=== PATIENT | female | born 1930 | race Caucasian/White ===

== ENCOUNTER 2017-04-30 13:30 | Inpatient (IN) | payer MEDICARE, BC ==
[~2017-04-30] VITALS: Ht 160 cm; Wt 64.8 kg
--- NOTE | ~2017-04-30 | DS ---
PATIENT'S NAME: MEENAKSHI DUNN [facility] AGE: 87 Y [address] ROOM: [address] [address] [facility] AD[facility] DATE: 04/30/2017 Discharge Summary DISCHARGE DATE: FAMILY PHYSICIAN: Sara Crocker MD ATTENDING PHYSICIAN: Jqauan Ferraro PRINCIPAL DIAGNOSES: 1. Wide-complex tachycardia. 2. Atrial fibrillation with rapid ventricular rate. 3. Coronary artery disease, status post stenting with bare metal stent to the left circumflex. 4. Bradycardia. 5. Hypertension. BRIEF HOSPITAL COURSE: This is an 87-year-old female, with known history of paroxysmal atrial fibrillation and coronary artery disease who presents with complaints of palpitations and on further workup was initially noted to be in AFib RVR and subsequently followed by wide complex tachycardia. The patient was initially started on amiodarone bolus and IV infusion, however, was subsequently bradycardic and in sinus rhythm right away and this had been held. The patient was seen by Cardiology, Dr. Franco and had a cardiac cath done to further evaluate them and was noted to have 99% stenosis of her left circumflex and a bare metal stent was placed. The patient is on dual- antiplatelet therapy at this point. The patient had been in sinus rhythm with heart rates in the 50s and asymptomatic throughout her hospital stay following that. The patient is to be continued on low-dose metoprolol as well as p.o. amiodarone and she will follow up with Dr. Franco next week. PHYSICAL EXAMINATION: GENERAL: The patient is awake, alert, and oriented x3, in no acute distress. CHEST: Clear to auscultation bilaterally. HEART: S1, S2. Regular rate and rhythm. ABDOMEN: Soft, nontender, nondistended. EXTREMITIES: Without edema. NEUROLOGIC: Nonfocal. DISPOSITION: Home, to follow up with Dr. Franco next week. MEDICATIONS: Per MAR. Less than 30 minutes were spent in discharge planning and facilitating. PAT[facility] AGE: 87 Y [address] ROOM: [id number] [place] [id number] [facility] AD[facility] DATE: 04/30/2017 Discharge Summary DISCHARGE DATE: FAMILY PHYSICIAN: Sara Crocker MD ATTENDING PHYSICIAN: Jaquan Ferraro MD BG/modl /[id number] d: 05/04/17 1240 t: 05/04/17 1534, DISCHARGE SUMMARY
--- NOTE | ~2017-04-30 | HP ---
PATIENT'S NAME: MEENAKSHI DUNN [facility] AGE: 87 Y [address] ROOM: [place] [address] LOCATION: [facility] ADMIT DATE: 04/30/2017 History & Physical DISCHARGE DATE: FAMILY PHYSICIAN: Sara Crocker MD ATTENDING PHYSICIAN: Jaquan Ferraro DATE OF SERVICE: CHIEF COMPLAINT: Atrial fibrillation with rapid ventricular response. HISTORY OF PRESENTING ILLNESS: This 87-year-old white female with previous history of coronary artery disease status post coronary artery bypass grafting and paroxysmal atrial fibrillation, was transferred to [facility] from [place] after an episode of extreme tachycardia, which occurred this morning while she was at home. She had recently undergone DC cardioversion for atrial fibrillation, under the direction of Dr. Franco. Briefly, she was at home when she began to feel unwell. She states she stopped and took her pulse and noticed that it was racing. She contacted her son and she was subsequently taken to the emergency room in [place], where she was found to have ventricular rates in the 160s. An EKG demonstrated wide-complex tachycardia. She did receive some beta-ronnie therapy and her heart rates resolved, although she did become profoundly bradycardic. Dr. Franco, physician intensivist, was consulted by telephone, and recommended starting IV amiodarone. The drip was begun, but then subsequently stopped by the time she arrived to the floor here in [place]. Her heart rates are currently in the 50s. She denies fever, chills, or sweats. She denies headaches or dizziness. She did feel a little lightheaded when the episode came on this morning but feels fine now. She has not had any chest pain. She denies congestion or cough. No significant shortness of breath. No abdominal pain. She has been eating and drinking normally. Denies any difficulty with chewing or swallowing. No orthopnea. She has been stooling and voiding normally. No numbness, tingling, or weakness in her extremities or any associated physical or constitutional complaints. PAST MEDICAL HISTORY: ALLERGIES: NO KNOWN DRUG ALLERGIES. ILLNESSES: PATIENT'S NAME: MEENAKSHI DUNN [facility] AGE: 87 Y [address] ROOM: [place] [address] LOCATION: [facility] ADMIT DATE: 04/30/2017 History & Physical DISCHARGE DATE: FAMILY PHYSICIAN: Sara Crocker MD ATTENDING PHYSICIAN: Jaquan Ferraro 1. Coronary artery disease status post coronary artery bypass grafting in 2007. 2. Paroxysmal atrial fibrillation. 3. Essential hypertension. 4. Hyperlipidemia. 5. Osteoarthritis, generalized. 6. Hypothyroidism. CURRENT MEDICATIONS: 1. Acetaminophen 500 mg p.o. daily p.r.n. 2. Aspirin 81 mg p.o. daily. 3. Isosorbide dinitrate 30 mg p.o. at bedtime. 4. Levothyroxine 25 mcg p.o. daily. 5. Propafenone 225 mg p.o. b.i.d. 6. Simvastatin 40 mg p.o. at bedtime. 7. PreserVision daily. 8. Coumadin daily. FAMILY HISTORY: Significant for coronary artery disease in her brother, who at a young age. SOCIAL HISTORY: She is and lives near [place]. She is a nonsmoker and there is no significant history of alcohol use. REVIEW OF SYSTEMS: As per HPI. All other organ systems reviewed and are negative. OBJECTIVE: VITAL SIGNS: Temperature 97.1, pulse 54, respirations 18, blood pressure 184/81, O2 saturation 96% on room air. GENERAL: She is frail, but not ill-appearing, very hard of hearing, in no acute distress. SKIN: Supple, pink, warm, dry. No obvious rashes. HEENT: Otherwise normocephalic. Sclerae nonicteric. Pupils equal, round, and reactive to light and accommodation. Extraocular movements appear intact. Nasal turbinates normal in appearance. Oropharynx clear. Mucous membranes are pink and moist. NECK: Supple. No masses or adenopathy. No thyromegaly. No JVD in the 30- degree position. CHEST: Chest wall is symmetrical. HEART: Bradycardic but regular with a grade 1 to 2/6 systolic ejection murmur. LUNGS: Diminished at the bases. No crackles or wheezes are heard. PATIENT'S NAME: MEENAKSHI DUNN [facility] AGE: 87 Y [address] ROOM: [place] [address] LOCATION: [facility] ADMIT DATE: 04/30/2017 History & Physical DISCHARGE DATE: FAMILY PHYSICIAN: Sara Crocker MD ATTENDING PHYSICIAN: Jaquan Ferraro ABDOMEN: Soft, protuberant, nontender. Bowel sounds present. No mass or hepatosplenomegaly. and RECTAL: Not done. EXTREMITIES: Display no clubbing, cyanosis, or edema. NEUROLOGIC: Very hard of hearing. Otherwise no focal deficits. LABORATORY AND X-RAY DATA: CBC showed a white blood cell count 8.59, hemoglobin is 12.8, hematocrit 40, platelets 264. Chemistries revealed BUN and creatinine of 15 and 0.9 respectively. Sodium and potassium 138 and 4.0, chloride and CO2 are 102 and 26.7. AST and ALT 26 and 27 respectively. Bilirubin was 0.4, glucose 111. Cardiac enzymes showed a CPK 150, MB 2.0, troponin I of 0.03. Magnesium level was 1.8. TSH was normal at 2.04. INR was subtherapeutic at 1.54. ASSESSMENT AND PLAN: 1. Atrial fibrillation with rapid ventricular response, rate controlled, stable now. She is a little bradycardic, but appears to be sinus rhythm. We will continue to monitor on telemetry. The amiodarone had been discontinued when she got to the floor and we will hold restarting that for now. We will consult with Cardiology and await their recommendations. We will initiate full dose Lovenox and resume the warfarin. We will bridge therapy until she is therapeutic. 2. Near syncope. She appears to be hemodynamically stable now. We will monitor. 3. Essential hypertension, adequately controlled. We will plan to continue with her home regimen. 4. Coronary artery disease, clinically asymptomatic and stable. Continue with aspirin therapy and statin therapy. We will hold off on beta- ronnie therapy, she does not appear to tolerate it. We will trend cardiac enzymes. 5. Hypothyroidism, clinically stable on replacement therapy. 6. Deep venous thrombosis prophylaxis. She is going to be fully anticoagulated with Lovenox. MD CATARINA GAMBOA/uyen /[id number] D: [id number] T: [id number] HISTORY & PHYSICAL
--- NOTE | ~2017-04-30 | CATH ---
Cardiac Diagnostic + PCI Report Demographics Patient Name MONA RICHARDSON Gender Female Date of 1930 Age 87 year(s) Patient Number [id number] Date of Study 05/03/2017 Visit Number [id number] Room Number [id number] Corporate ID Ht 160.02 cm Wt 68.49 kg Referring Joan Quintanilla MD Primary Physician Physician Performing Joan Quintanilla MD Secondary Physician Physician Diagnostic Joan Quintanilla MD Assisting Physician Physician Interventional Joan Quintanilla MD Physician Truck Farmer Physician Findings and Conclusions Diagnostic Findings and Conclusion 3 vessel CAD 0/3 grafts patent Diagnostic Recommendations PCI LCFX Interventional Findings and Conclusion 0.014 prowater 2.5 x20 Emerge 2.5 x 24 Rebel to 2.7 with 0% residual Interventional Recommendations DAPT x 1 month Procedure Description The patient was brought to the diagnostic cardiac catheterization-EP laboratory in the fasting, non-sedated state. Informed consent was obtained in the written and verbal form after the risks and benefits were explained. The patient had no further questions and agreed to proceed. The planned puncture-incision site(s) were shaved and prepped with ChloraPrep and draped in the usual sterile manner. Conscious sedation, supplemental oxygen, and pain control medications were delivered by a registered nurse under physician guidance. Surface ECG rhythm, blood pressure measurement, and pulse oximetry were monitored throughout the procedure. Arterial access. The access site was infiltrated with lidocaine. The vessel was entered with the Seldinger technique. A sheath was advanced into the vessel and used for catheter placement. Selective left coronary angiography. A catheter was advanced into the left coronary vessel ostium under Fluoroscopic guidance. Contrast was injected by hand. Images were obtained in multiple projections. Selective right coronary angiography. A catheter was advanced into the right coronary vessel ostium under fluoroscopic guidance. Contrast was injected by hand. Images were obtained in multiple projections. Selective DUNN graft angiography. A catheter was advanced into the left internal mammary graft ostium under fluoroscopic guidance. Contrast was injected by hand. Images were obtained in multiple projections. Selective SVG angiography. A catheter was advanced into the graft proximal anastomosis under fluoroscopic guidance. Contrast was injected by hand. Images were obtained in multiple projections. Left heart catheterization. A catheter was advanced across the aortic valve to the left ventricle under fluoroscopic guidance. Resting hemodynamics were obtained. Stent Placement: A guiding catheter was used to intubate the vessel. A 0.14 wire was used to cross the lesion. A Bare Metal Stent was placed. Post placement angiograms were performed. Arterial artery hemostasis. Hemostasis was achieved. The patient was transferred to a regular nursing floor via cart accompanied by a nurse. The patient left the laboratory in stable condition. Diagnostic Cath Status: Urgent Interventional Cath Status: Urgent Procedure Procedure Type PCI procedure:Bare Metal Coronary Stent:, OM Indications: Angina. The procedure was explained in detail to the patient. Risks, complications and alternative treatments were reviewed. Written consent was obtained. Medications Reviewed with Patient prior to Procedure. Angiographic Findings Dominance: Right Cardiac Arteries and Lesion Findings LMCA: Normal (0% Stenosis).large wnl LAD: Abnormal.medium mid, 60-70%, no retrograde flow Diag 1 small ok Lesion on Mid LAD: Mid subsection.70% stenosis . LCx: Abnormal.lARGE WNL OM 1 medium ok OM3 large ostial 99% Lesion on 3rd Ob [place]: Ostial.99% stenosis 24 mm length reduced to 0%. Pre procedure JAY II flow was noted. Post Procedure JAY III flow was present. The guidewire cross was successful.A poor run off was present.The lesion was diagnosed as a moderate risk lesion.Culprit lesion. Devices used - Prowater Wire .014 x 180. Number of passes: 1. - Emerge Balloon 2.5 x 20. 1 inflation(s) to a max pressure of: 6 morgan. - 2.5 x 24 Rebel Stent. 2 inflation(s) to a max pressure of: 13 morgan. RCA: Abnormal.100% occluded Lesion on Prox RCA: Proximal subsection.100% stenosis . Cardiac Grafts - There is a Vein graft that originates at the Aorta Right and attaches to the Dist RCA (100% occluded). - There is a Vein graft that originates at the Aorta Left and attaches to the Mid CX (100% occluded). - There is a DUNN graft that originates at the DUNN and attaches to the Mid LAD (100% occluded). Coronary Tree Procedure Data Procedure Date Date: 05/03/2017Start: 09:40 AMEnd: 10:30 AM Entry Locations - Retrograde Percutaneous access was performed through the Right Femoral artery (Primary location). A 6 Fr sheath was inserted. Closure Comments: sheath sutured in to be pulled late on nursing floor. Procedure Medications Order and Administration + + + + + !Time !Medication !Dosage !Route ! + + + + + !05/03/2017 09:34 !Fentanyl !25 mcg !I.V. ! !AM ! ! ! ! + + + + + !05/03/2017 09:34 !Versed !1 mg !I.V. ! !AM ! ! ! ! + + + + + !05/03/2017 09:58 !Angiomax (Bivalirudin) !52.5 mg !I.V. bolus ! !AM !(ACC_5) ! ! ! + + + + + !05/03/2017 10:02 !Angiomax (Bivalirudin) !1.75 mg/kg/hr!I.V. drip ! !AM !(ACC_5) ! ! ! + + + + + !05/03/2017 10:08 !Niprodrigoe !55 mcg !I.C. ! !AM ! ! ! ! + + + + + !05/03/2017 10:11 !Nipride !61 mcg !I.C. ! !AM ! ! ! ! + + + + + !05/03/2017 10:12 !Brilinta (Ticagrelor) !180 mg !P.O. ! !AM !(ACC_20) ! ! ! + + + + + !05/03/2017 10:15 !Angiomax (Bivalirudin) ! !I.V. drip ! !AM !(ACC_5) ! ! ! + + + + + Devices Used - A6 Fr. BS JL 4 Diag. Catheterwas used for:Left coronary angiography. - A6 Fr. BS JR 4 Diag. Catheterwas used for:Right coronary angiography. - A6 Fr. BS IMT Diag. Catheterwas used for:DUNN. - A6 Fr. BS Angled Pigtail Diag. Catheterwas used for:LV Pressures. - A6 Fr. XB 3.5 Guide Catheterwas used for:OM Intervention. Contrast Material - Isovue [id number] ml Fluoroscopy Time: Diagnostic: 12:48 minutes. Total: 12:48 minutes. Fluoroscopy Dose: Diagnostic: 1156 mGy. Total: 1156 mGy. Estimated Blood Loss: 5 ml. Additional [facility] PCI Information PCI Indication:PCI for high risk Non-STEMI or unstable angina. Medical History Allergies - No known allergies. Risk Factors The patient risk factors include: prior CABG on 10/04/2007;physical activity, hypercholesterolemia, hypertension, family history of premature CAD, last creatinine: 0.7 mg/dl, creatinine clearance: 61.22 ml/min, dyslipidemia and prior AR . Admission Data Admission Date: 04/30/2017 Admission Time: 03:09 PM Admit Source: Other Insurance Payors: Medicare. Admission Medications + +------+------+ + + + + !Medication !Dosage!Times !Last !Last !Administered !Comments ! ! ! !Per !Delivery !Delivery ! ! ! ! ! !Day !Date !Time ! ! ! + +------+------+ + + + + !ARB (any) ! ! ! ! ! ! ! + +------+------+ + + + + !Aspirin ! ! ! ! ! ! ! !(any) ! ! ! ! ! ! ! + +------+------+ + + + + !Beta Swathi! ! ! ! ! ! ! !(any) ! ! ! ! ! ! ! + +------+------+ + + + + !Nitrates (iv! ! ! ! ! ! ! !or buccal) ! ! ! ! ! ! ! + +------+------+ + + + + !Statin (any)! ! ! ! ! ! ! + +------+------+ + + + + Clinical Evaluation Leading to Procedure - The patient's CAD presentation was assessed as: Non-STEMI. - The patient's anginal syndrome during the past two weeks was assessed as: Class IV according to the [place] Cardiovascular Society Classification System (CCS). Anti-anginal medications were prescribed during the past two weeks. The medications are: Beta Blockers, Long Acting Nitrates and Other. Hemodynamics Condition: Rest O2 Consumption: Estimated: 142.42Heart Rate: 55 bpm Pressures (mmHg) +-----+ + !Site !Pressure ! +-----+ + !AO !133/73 (92) ! +-----+ + !AO !187/68 (109) ! +-----+ + !AO !174/72 (110) ! +-----+ + !LV !178/-10 ,15 ! +-----+ + !LV !182/- ,14 ! +-----+ + !AO !188/65 (108) ! +-----+ + !LV !186/-14 ! +-----+ + Valve Gradients and Areas + +---------+---------+---------+ +---------+ + !Valve !Peak !Mean !Area !Index !Flow !Source ! + +---------+---------+---------+ +---------+ + !Aortic !0 !0 ! ! ! ! ! + +---------+---------+---------+ +---------+ + !Aortic !0 !0 ! ! ! ! ! + +---------+---------+---------+ +---------+ + Shunts Oxygen Values O2 Capacity 182.24 O2 Consumption 142.42 Signatures dtt: Dwight Franco (cardio) dtd: 05/03/17 0940 Physician Self Edit
--- NOTE | ~2017-04-30 | ESTC ---
Cardiac Perfusion Imaging Demographics Patient Name MONA RICHARDSON Gender Female Patient Number [id number] Race Visit Number [id number] Ethnicity Corporate ID Room Number [id number] Accession Number [id number] Height 63 inches Date of 1930 Weight 151 pounds Interpreting Kulwant Corley Date of study 05/01/2017 Physician Supervising /CLARENCE Corley NM Technologist Ildefonso Segundo Ordering Physician Danny Cain Stress Nabele DUNHAM cook chill technician Omar Stress ECG Reading Kulwant Corley Nurse Nabeel Physician Omar The procedure was explained in detail to the patient. Risks, complications and alternative treatments were reviewed. Written consent was obtained. Medications Reviewed with Patient prior to Procedure. Procedure Admit Source:Other. Procedure Type: Nuclear Stress Test:Pharmacological, Lexiscan, Cardiolite Stress Test Procedure Start time: 05/01/2017 08:45 Indications: Arrhythmia. Risk Factors The patient risk factors include:prior CABG on 10/04/2007;physical activity, hypercholesterolemia, hypertension, family history of premature CAD, last creatinine: 0.7 mg/dl, dyslipidemia, prior MN and creatinine clearance: 61.22 ml/min. Conclusions Summary 1. Perfusion Images: The overall quality of the study is good. Left ventricular cavity size is normal on stress and rest images. There is no evidence of abnormal lung activity. The right ventricle is not visualized and cannot be assessed. Stress imaging reveals a medium sized area of severe decreased isotope uptake in the lateral wall of the left ventricle. Rest imaging reveals a small sized area of moderate decreased isotope uptake in the lateral wall of the left ventricle. Gated imaging reveals normal wall motion. Impression ECG portion of the stress test is clinically negative for ischemia by diagnostic criteria. Pt has severe hypertension. Myocardial perfusion imaging is moderately abnormal. Images reveal a medium sized area of moderate to severe partially reversible perfusion defect in the lateral wall suggestive of infarct with moderate ischemia. Gated wall motion is normal with LVEF 56%. This is a intermediate risk stress test. Patient was notified of the findings. Stress Protocols Resting ECG Sinus Bradycardia, non specific T wave abnormality Pre-stress physical exam: Patient assessed by Dr Main prior to testing. Predicted HR: 133 bpm ECG Findings No ECG changes suggestive of ischemia. Arrhythmias No rhythm abnormality. Symptoms No symptoms with Lexiscan infusion. Stress Interpretation ECG portion of stress test is negative for ischemia by diagnostic criteria. Pt has severe hypertension. Nuclear images are pending Imaging Results Summed scores - Summed stress score: 18 - Summed rest score: 20 - Summed difference score: -2 Stress ejection Ejection fraction:57 % EDV :83 ml ESV :36 ml Stroke volume :47 ml LV mass :105 gr Imaging Protocols Rest Stress Isotope:Tc99m Sestamibi IV Isotope: Tc99m Sestamibi IV Isotope dose:10.1 mCi Isotope dose:30.4 mCi Date:05/01/2017 07:50 Date:05/01/2017 09:12 Technique: SPECT Technique: Gated Supine SPECT Supine IV remains in place after procedure. Scan Time:30 minutes post injection Scan Time:45-60 minutes post injection Procedure Medications - Regadenoson (Lexiscan) 0.4 mg IV over 10-15 sec. I.V. 0.4 mg. Medications administered per verbal order and read back to physician prior to administration. Medical History Admission Medications + +------+ + +---------+--------+ !Name !Dosage!Times per day!Start date!Stop date!Details ! + +------+ + +---------+--------+ !ARB (any) ! ! ! ! ! ! + +------+ + +---------+--------+ !Aspirin (any) ! ! ! ! ! ! + +------+ + +---------+--------+ !Beta Swathi (any) ! ! ! ! ! ! + +------+ + +---------+--------+ !Nitrates (iv or buccal)! ! ! ! ! ! + +------+ + +---------+--------+ !Statin (any) ! ! ! ! ! ! + +------+ + +---------+--------+ Admission Data Admission date: 04/30/2017 Admission Time: 15:09 Hospital Status: Inpatient. Signatures dtt: REYNALDO MAIN dtd: 05/01/17 0845 Physician Self Edit
--- NOTE | ~2017-04-30 | ECHO ---
Transthoracic Echocardiography Report (TTE) Demographics Patient Name MEENAKSHI DUNN Date of Study 05/01/2017 Patient Number [id number] Visit Number [id number] Date of 1930 Room Number G6335 Gender Female Number Age 87 year(s) Referring Danny Cain Tube Former Operator Darlene Moreno, Physician RT,RVT,RDCS Physician Interpreting Kulwant Corley Feller Operator Physician Supervising Ordering Danny Cain MD, MD/MLP Physician Nurse Stress Sales Forecast Analyst Conclusions Contractility Score Summary Normal Left Ventricular contractility was noted. Summary The estimated left ventricular ejection fraction is 60-65%. The left atrium is moderately dilated. Mild concentric left ventricular hypertrophy. Mild mitral regurgitation by color Doppler. Mild tricuspid regurgitation by color Doppler. Procedure Type of Study TTE procedure:2D Echocardiogram, M-Mode, Doppler , Color Doppler. Procedure Date Date: 05/01/2017 Start: 10:31 AM Study Location: Inpatient Portable Technical Quality: Good visualization Indications:Chest pain. Appropriate Use Criteria: 9 Patient Status: Routine HR: 54 bpm BP: 188/78 mmHg M-Mode/2D Measurements LV Diastolic Dimension: 5.22 cm LV Systolic Dimension: 3.83 cm LV Septum Diastolic: 1.09 cm LV Septum Systolic: 1.57 cm LV PW Diastolic: 1.19 cm LV PW Systolic: 1.25 cm Cardiac Output: 2.64 l/min AO Root Dimension: 2.6 cm RV Diastolic Dimension: 3.18 cm LA Dimension: 4.8 cm EF Estimated: 55 % LA volume: 51 ml LVOT: 1.8 cm LVOT VTI: 19.2 cm LV Stroke volume: 48.83 ml Doppler Measurements AV Peak Velocity: 1.01 m/s MV Peak E-Wave: 0.96 m/s AV Peak Gradient: 4.08 mmHg MV Peak A-Wave: 0.42 m/s AV Mean Gradient: 2 mmHg MV E/A Ratio: 2.29 LVOT Peak Velocity: 0.71 m/s MV P1/2t: 54 msec TR Gradient:27.25 mmHg PV Peak Velocity: 0.86 m/s Estimated RAP:10 mmHg PV Peak Gradient: 2.94 mmHg Estimated RVSP: 37 mmHg Estimated PASP: 37.25 mmHg E' Septal Velocity: 0.04 m/s A' Septal Velocity: 0.04 m/s MV E/E' Ratio: 23.2 Findings Left Ventricle Mild concentric left ventricular hypertrophy. Diastolic function indeterminate as tissue dopplers were not obtained. Right Ventricle Normal right ventricle structure and function. Left Atrium The left atrium is moderately dilated. Right Atrium Normal right atrial size. Poor subcostal window for IVC measurement. Mitral Valve Mild mitral regurgitation by color Doppler. Aortic Valve The aortic valve is moderately sclerotic. Tricuspid Valve The estimated pulmonary pressure (RVSP) is 30 mmHg. Mild tricuspid regurgitation by color Doppler. Pulmonic Valve Mild pulmonic valve regurgitation by color Doppler. Miscellaneous Visualized portions of the aortic root and ascending aorta appear normal in size. Pleural Effusion No evidence of pleural effusion. Contractility Score LV regional wall motion:(0-Non visualized 1-Normal 2-Hypokinesis 3-Akinesis 4-Dyskinesis 5-Aneurysm) Signature dtt: REYNALDO MAIN dtd: 05/01/17 1031 Physician Self Edit
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
[2017-04-30] MEDS ORDERED: PROPAFENONE HC225 MG PO (15:36)
[2017-04-30] MEDS ORDERED: COUMADIN ** IA3 MG PO (15:37)
[2017-04-30] MEDS ORDERED: COUMADIN ** IA3 MG (15:37)
[2017-04-30] MEDS ORDERED: ZOCOR40 MG PO (15:38)
[2017-04-30] MEDS ORDERED: TYLOPHEN500 MG PO (15:38)
[2017-04-30] MEDS ORDERED: NIFEREX-150) (150 MG PO (15:39)
[2017-04-30] MEDS ORDERED: LEVOTHROID (SY25 MCG PO (15:39)
[2017-04-30] MEDS ORDERED: IMDUR30 MG PO (15:39)
[2017-04-30] MEDS ORDERED: PRESERVISION A1 EAC1 PO (15:40)
[2017-04-30] MEDS ORDERED: BAYER CHILD81 MG PO (15:40)
[2017-04-30] MEDS ORDERED: XALATAN2.5 ML OPHTH (16:30)
--- NOTE | 2017-04-30 16:36 | NUR ---
Patient is 87 yo female admitted this afternoon for she says her heart was beating fast this morning. pt states she could tell something wasn't right and told her it was time to go to the hospital. patient lives in [place] w/her . patient is very hard of hearing and is very pleasant. saline lock is noted in left antecubital space without erythema or edema noted at site. patient is on monitor w/bradycardia noted. education is given as documented, patient denies questions. pneumatics are on bilat calves. pt edmundo well. call light is within reach, patient denies needs at this time. report is given to JOSEPHINE Pacheco.
--- NOTE | 2017-05-01 04:31 | NUR ---
Significant Event: Pt A&Ox3. VS stable, remains on RA. Has been hypertensive all shift, but better than start of shift. Pt is VERY [place]. Currently NPO for ECHO and Lexiscan today. No c/o chest pain. Does c/o dizziness when gets up. Up x1 assist with gaitbelt. HR's have been in the 40's-60's. PIV in LAC, SL. Follow up: Lexiscan, ECHO, possible home today if ok.
[2017-05-01 04:36] LABS: BASOPHIL # 0.1 K/uL (0.0-0.2); BASOPHIL % 0.7 %; EOSINOPHIL # 0.1 K/uL (0.0-0.5); EOSINOPHIL % 1.6 %; HEMOGLOBIN 12.4 g/dL (10.0-15.0); IMMATURE GRANULOCYTE % 0.3 %; LYMPHOCYTE # 1.1 K/uL (0.8-4.0); LYMPHOCYTE % 16.4 %; MCHC 32.6 gm/dL (32.0-36.5); MCV 91.8 fl (83.0-98.0); MONOCYTE # 0.6 K/uL (0.0-1.0); MONOCYTE % 9.1 %; MPV 9.7 fl (9.4-12.4); NEUTROPHIL # (ANC) 4.9 K/uL (1.8-7.8); NEUTROPHIL % 71.9 %; NRBC % 0 /100WBC (0-0.00); PLATELET COUNT 232 K/uL (150-450); RBC 4.14 M/uL (3.00-5.00); RDW-CV 13.6 % (11.9-14.6); WBC 6.8 K/uL (4.0-11.0)
[2017-05-01 04:42] LABS: INR - (THERAPEUTIC) 1.61 (0.92-1.07)
[2017-05-01 04:57] LABS: ALBUMIN 3.2 gm/dL (3.5-5.0); ANION GAP 9.6 (10.0-19.0); CALCIUM 8.2 mg/dL (8.5-10.5); CREATININE 0.8 mg/dL (0.5-1.1); MAGNESIUM 2.1 mg/dL (1.8-2.6); PHOSPHORUS 2.7 mg/dL (2.5-4.9); POTASSIUM 3.6 mMol/L (3.7-5.1)
--- NOTE | 2017-05-01 19:02 | NUR ---
PATIENT HAD STRESS TEST TODAY, DR REPORTED STRESS WAS ABNORMAL. SBP IN STRESS LAB WAS 200'S. PO NORVASC AND IV HYDRALAZINE GIVEN FOR SBP 180'S. BP DECREASED TO 140'S AFTER. HOLDING COUMADIN, GAVE LOVENOX. PLAN FOR HEART CATH ON WEDNESDAY.
[2017-05-02 05:16] LABS: BASOPHIL % 0.4 %; EOSINOPHIL # 0.2 K/uL (0.0-0.5); HEMATOCRIT 39.7 % (30.0-46.0); HEMOGLOBIN 13.4 g/dL (10.0-15.0); IMMATURE GRANULOCYTE % 0.4 %; LYMPHOCYTE # 1.2 K/uL (0.8-4.0); LYMPHOCYTE % 14.6 %; MCH 31.1 pg (27.0-34.0); MCHC 33.8 gm/dL (32.0-36.5); MCV 92.1 fl (83.0-98.0); MONOCYTE # 0.9 K/uL (0.0-1.0); MONOCYTE % 10.6 %; NEUTROPHIL # (ANC) 5.9 K/uL (1.8-7.8); NRBC % 0 /100WBC (0-0.00); PLATELET COUNT 248 K/uL (150-450); RBC 4.31 M/uL (3.00-5.00); RDW-CV 13.8 % (11.9-14.6); WBC 8.1 K/uL (4.0-11.0)
[2017-05-02 05:23] LABS: INR - (THERAPEUTIC) 1.41 (0.92-1.07); PROTIME 14.9 SECONDS (9.8-11.4)
[2017-05-02 05:36] LABS: ALBUMIN 3.2 gm/dL (3.5-5.0); ANION GAP 11.6 (10.0-19.0); CALCIUM 8.2 mg/dL (8.5-10.5); CREATININE 0.7 mg/dL (0.5-1.1); POTASSIUM 3.6 mMol/L (3.7-5.1); TOTAL BILIRUBIN 0.3 mg/dL (0.0-1.5); TOTAL PROTEIN 6.1 g/dL (6.0-8.4)
--- NOTE | 2017-05-02 06:49 | NUR ---
Significant Event: VSS. MATTA/FAC. PT is hard of hearing. Denies any dizziness. SBP 140-160s; HR 60-70s. Lung sounds clear-dim. Follow up: NPO after midnight, heart cath tomorrow.
--- NOTE | 2017-05-02 16:38 | NUR ---
PATIENT UP TO CHAIR W/ 1 ASSIST, USED CALL LIGHT APPROPRIATELY. INITIAL DOSE METOPROLOL GIVEN. PO POTASSIUM GIVEN. AT BEDSIDE. PLAN FOR POSSIBLE HEART CATH TOMORROW.
--- NOTE | 2017-05-03 03:24 | NUR ---
Significant Event: PATIENT IS ALERT AND ORIENTED UP WITH STAND BY ASSISTANCE. BEEN NPO SINCE MIDNIGHT FOR POSSIBLE HEART CATH. NO ORDERS AT THIS TIME. SPOUSE SLEPT AT BEDSIDE. IV TO RIGHT AC SL. LAST BM YESTERDAY. ABNORMAL LEXISCAN YESTERDAY. Follow up:
[2017-05-03 03:58] LABS: INR - (THERAPEUTIC) 1.24 (0.92-1.07); PROTIME 13.1 SECONDS (9.8-11.4)
[2017-05-03 04:03] LABS: ANION GAP 9.4 (10.0-19.0); CALCIUM 8.3 mg/dL (8.5-10.5); CREATININE 0.7 mg/dL (0.5-1.1); POTASSIUM 4.4 mMol/L (3.7-5.1)
--- NOTE | 2017-05-03 13:59 | NUR ---
Met patient, spouse, and other family members after patient returned to her room following the heart cath procedure. states they live in [place] and have lived there all their lives. He states the plan if for patient to return home with him when medically cleared for discharge. The family and he deny any concerns with discharge at this time. He states they have plenty of supports. Patient will possibly discharge to home tomorrow depending on how she does today. Will continue to follow and offer supports.
--- NOTE | 2017-05-03 16:14 | NUR ---
Significant Event: Patient alert and oriented. Able to follow commands appropriately. Heart cath this AM, stent placed and returned with sheath. BP's in the 200's. BP meds given and Nitro given, BP's returned to 130's. Sheath removed and pressures dropped to 80's. Fluid bolus given. Vagal response, atropine given. Bradycardic Bedrest until 1930. Transfers 1A. and Children at bedside. IV running NS at 125 ml/hr in R) wrist. Skin tear to L) forearm. Hard of hearing, wears hearing aids. Denies pain. Cooperative with cares. Follow up:
[2017-05-04 04:04] LABS: BASOPHIL % 0.3 %; EOSINOPHIL # 0.3 K/uL (0.0-0.5); EOSINOPHIL % 2.6 %; HEMATOCRIT 37.1 % (30.0-46.0); HEMOGLOBIN 12.2 g/dL (10.0-15.0); IMMATURE GRANULOCYTE % 0.4 %; LYMPHOCYTE % 10.2 %; MCH 30.8 pg (27.0-34.0); MCHC 32.9 gm/dL (32.0-36.5); MCV 93.7 fl (83.0-98.0); MONOCYTE # 0.9 K/uL (0.0-1.0); MONOCYTE % 9.6 %; MPV 9.9 fl (9.4-12.4); NEUTROPHIL # (ANC) 7.3 K/uL (1.8-7.8); NEUTROPHIL % 76.9 %; NRBC % 0 /100WBC (0-0.00); PLATELET COUNT 229 K/uL (150-450); RBC 3.96 M/uL (3.00-5.00); WBC 9.5 K/uL (4.0-11.0)
[2017-05-04 04:10] LABS: INR - (THERAPEUTIC) 1.08 (0.92-1.07); PROTIME 11.4 SECONDS (9.8-11.4)
--- NOTE | 2017-05-04 04:19 | NUR ---
Significant Event: A/O x3. Afebrile. KE[place]. Denies pain. VSS on RA. SBP 110-130s. HR 48-50s. Up standby assist. 1100 uop.Cooperative with cares. Follow up: Possible discharge today
[2017-05-04 04:24] LABS: ALBUMIN 2.9 gm/dL (3.5-5.0); ANION GAP 11.1 (10.0-19.0); CREATININE 0.8 mg/dL (0.5-1.1); POTASSIUM 4.1 mMol/L (3.7-5.1); TOTAL PROTEIN 5.4 g/dL (6.0-8.4)
[2017-05-04 04:26] LABS: TOTAL BILIRUBIN 0.4 mg/dL (0.0-1.5)
[2017-05-04] MEDS ORDERED: NORVASC2.5 MG PO (11:14)
[2017-05-04] MEDS ORDERED: LOPRESSOR25 MG PO (11:17)
[2017-05-04] MEDS ORDERED: BRILINTA90 MG PO (11:21)
[2017-05-04] MEDS ORDERED: CORDARONE,PACE200 MG PO (11:33)
--- NOTE | 2017-05-04 12:20 | NUR ---
D: PATIENT ALERT AND ORIENTED X3. BP 156/72, 53, 18, 96% ON ROOM AIR, 98.1. GAUZE/TEGADERM DRESSING TO R) GROIN REMOVED AND BANDAID APPLIED. NOTE SMALL BRUISING TO R) GROIN REGION, NO DRAINAGE, DENIES NUMBNESS/TINGLING TO R) LOWER EXTREMITY. DENIED PAIN WHEN ASKED. AMBULATES TO BATHROOM WITH SBA AND UP TO CHAIR. DISCHARGE INSTRUCTIONS REVIEWED WITH PATIENT, VERBALIZES UNDERSTANDING. PATIENT DISMISSED TO HOME, ACCOMPANIED BY . ASSISTED TO VEHICLE VIA W/C AND TA ASSISTANCE.
== END 2017-05-04 12:20 | disposition disaster alternative care site (69) | DRG 281 ==
LOC: GPCU 15:09
PROVIDERS: Hospitalist; Internal Medicine Interventional Cardiology; ADMIT Family Medicine
PROC: B218YZZ Fluoroscopy of Left Internal Mammary Bypass Graft using Other Contrast (ICD-10-PCS; principal; 2017-05-03)
PROC: 4A023N8 Measurement of Cardiac Sampling and Pressure, Bilateral, Percutaneous Approach (ICD-10-PCS; principal; 2017-05-03)
PROC: B216YZZ Fluoroscopy of Right and Left Heart using Other Contrast (ICD-10-PCS; principal; 2017-05-03)
DX: I21.4 Non-ST elevation (NSTEMI) myocardial infarction (principal); I47.2 Ventricular tachycardia; R00.1 Bradycardia, unspecified; I48.0 Paroxysmal atrial fibrillation; I10 Essential (primary) hypertension; R55 Syncope and collapse; E78.5 Hyperlipidemia, unspecified; E03.9 Hypothyroidism, unspecified; Z79.01 Long term (current) use of anticoagulants; I25.10 Atherosclerotic heart disease of native coronary artery without angina pectoris; M19.90 Unspecified osteoarthritis, unspecified site; Z79.82 Long term (current) use of aspirin; Z96.643 Presence of artificial hip joint, bilateral
CPT/HCPCS: A9500; C1725; C1769; C1876; C1887; C9600; J0280; J0360; J0461; J0583; J1644; J1650; J2250; J2405; J2785; J3010; J7030; J7060